=== PATIENT | male | born 1990 | race Caucasian/White ===

== ENCOUNTER 2021-02-06 16:05 | Emergency (ER) | payer MEDICAID ==
[~2021-02-06] VITALS: Ht 172.7 cm; Wt 84.4 kg
[2021-02-06 16:12] VITALS: BP 131/72
--- NOTE | 2021-02-06 16:14 | NUR ---
Patient ambulated to bed 2 with a steady gait.
--- NOTE | 2021-02-06 16:25 | NUR ---
Patient is a 30 y/o male c/o intermittent dull headache x1 week. Patient denies CP, SOB, n/v/d, head injury or trauma. pain is 2/10 today. HX Denies RX: Xanax PRN NKA
[2021-02-06] MEDS ORDERED: KETOROLAC 15 MG/ML VIAL IM ONE (16:45)
[2021-02-06] MEDS ORDERED: OXYM20SP1 NS (16:47)
--- NOTE | 2021-02-06 17:06 | NUR ---
Patient discharged with v/s stable. Written and verbal after care instructions given and explained. Patient alert, oriented and verbalized understanding of instructions. Ambulatory with steady gait. All questions addressed prior to discharge. ID band removed. Patient advised to follow up with PMD. Rx of oxymetazoline hcl given. Patient educated on indication of medication including possible reaction and side effects. Opportunity to ask questions provided and answered.
== END 2021-02-06 17:06 | disposition home or self-care (01) ==
LOC: MED 16:05
DX: R51.9 Headache, unspecified (principal)
CPT/HCPCS: 99282; J1885